=== PATIENT | female | born 1950 | race Caucasian/White ===

== ENCOUNTER 2019-02-08 13:51 | Emergency (ER) | payer MEDICARE, OTHER, SELFPAY ==
--- NOTE | 2019-02-08 14:08 | DI.RAD.S_ITS ---
PROCEDURE: XR HIP W PEL IF DONE LT 2V INDICATIONS: pain no inury TECHNIQUE: AP pelvis with lateral view(s) of the left hip. COMPARISON: None. FINDINGS: Bones: No fractures or dislocations. Pelvic ring appears intact. No suspicious bony lesions. Soft tissues: The visualized bowel gas pattern is normal. No suspicious soft tissue calcifications. Moderately severe degenerative osteoarthritis of the left hip without trauma. IMPRESSION: No trauma to the left hip is found that there is moderately severe left hip joint osteoarthritis. If hidden fracture is clinically suspected followup delayed plain films or MR scanning could be obtained. Dictated by: Hernan Yeh M.D. on 02/08/2019 at 14:54 Approved by: Hernan Yeh M.D. on 02/08/2019 at 14:56
--- NOTE | 2019-02-08 14:12 | ED_ITS ---
HPI - Extremity Injury (Lower) General Chief Complaint: Extremity Problem,Nontraumatic Stated Complaint: something wrong with left hip Time Seen by Provider: 02/08/19 13:55 Source: patient Mode of arrival: Ambulatory Limitations: no limitations History of Present Illness HPI Narrative: Patient is a 69-year-old female who presents with left hip pain ongoing for a month or more but definitely worse over last 3 days. She has actually seen evaluated by her PCP who diagnosed her with a tendinitis and put her on protocol of ibuprofen and ice. She says that ibuprofen really has not helped her last dose was this morning. She is able to weightbear bed is quite painful. She has pain in her buttock and some tingling in her thigh. No fevers or chills no fall or injury. Related Data Previous Rx's Medication Instructions Recorded hydrocodone-acetaminophen [[place]] 1 tab PO Q6H PRN #10 tab 02/08/19 meloxicam 7.5 mg PO DAILY #20 tab 02/08/19 Allergies Allergy/AdvReac Type Severity Reaction Status Date / Time No Known Drug Allergies Allergy Verified 02/08/19 14:22 Review of Systems Review of Systems Narrative: GENERAL: Denies chills,fever HEENT: Denies throat pain RESPIRATORY: Denies dyspnea, cough, wheezing CARDIOVASCULAR: Denies chest pain, palpitations GASTROINTESTINAL: Denies nausea, vomiting MUSCULOSKELETAL: See HPI SKIN: No rash, no laceration, no pruritus NEUROLOGIC: Denies weakness, dizziness, headache, numbness 8 point review of systems is negative except for those stated above and HPI Patient History Medical History Bipolar 1 disorder (Acute) Hypothyroid (Acute) Social History Smoking Status: Never smoker Exam Initial Vital Signs Initial Vital Signs: Vital Signs Temperature 97.7 F 02/08/19 14:14 Pulse Rate 78 02/08/19 14:14 Respiratory Rate 16 02/08/19 14:14 Blood Pressure 158/69 H 02/08/19 14:14 Pulse Oximetry 98 02/08/19 14:14 GENERAL: Well-appearing, well-nourished and in no acute distress. CARDIOVASCULAR: peripheral pulses in tact, cap refill <2 sec RESPIRATORY: No respiratory distress, speaks in full sentences without difficulty EXTREMITIES: Normal range of motion, no clubbing or edema. Neurovascularly intact Left hip able weightbear in the ED but it does appear painful. No erythema no contusion. Tender in the left buttock. His distal pedal pulse intact. Pain with internal and external rotation. BACK: No vertebral tenderness no step-offs NEUROLOGICAL: Cranial nerves II through XII grossly intact. Normal gait and speech. SKIN: Warm, dry, no petechiae, no rashes or lesions. Course Orders Ordered: ED Orders 02/08/19 14:08 XR hip w pel if done LT 2V Stat Discontinued Medications Hydrocodone Bitart/Acetaminophen ([place] 5/325) 1 tab PO NOW ONE Stop: 02/08/19 14:58 Last Admin: 02/08/19 15:01 Dose: 1 tab Documented by: EUGENIO Ketorolac Tromethamine (Toradol) 30 mg IM NOW ONE Stop: 02/08/19 14:09 Last Admin: 02/08/19 14:20 Dose: 30 mg Documented by: EUGENIO Vital Signs Vital signs: Vital Signs - 8 hr 02/08/19 14:14 02/08/19 15:10 Temperature 97.7 F Pulse Rate 78 91 H Respiratory Rate 16 16 Blood Pressure 158/69 H Blood Pressure [Left Arm] 154/62 H Pulse Oximetry 98 100 MDM - Extremity Injury (Lower) Imaging Data left hip: Radiologist's impression: PROCEDURE: XR HIP W PEL IF DONE LT 2V INDICATIONS: pain no inury TECHNIQUE: AP pelvis with lateral view(s) of the left hip. COMPARISON: None. FINDINGS: Bones: No fractures or dislocations. Pelvic ring appears intact. No suspicious bony lesions. Soft tissues: The visualized bowel gas pattern is normal. No suspicious soft tissue calcifications. Moderately severe degenerative osteoarthritis of the left hip without trauma. IMPRESSION: No trauma to the left hip is found that there is moderately severe left hip joint osteoarthritis. If hidden fracture is clinically suspected followup delayed plain films or MR scanning could be obtained. Dictated by: Hernan Yeh M.D. on 02/08/2019 at 14:54 MDM Narrative Medical decision making narrative: Patient states her pain got worse after Toradol. She initially was hesitant to have any narcotic medication but wanted some after the at. She is given 1 [place] tablet here. She has no fall or injury at this time I do not believe CT to be warranted. X-ray is negative for fracture. Family all at bedside. Stating that she cannot walk they actually have already gotten her wheelchair which they use to get her on the [place] today. On they are wanting an MRI however at this time not indicated patient has actually had pain ongoing for the last 6 weeks. The pain in her buttocks with some numbness in her anterior thigh. It sounds more like neuropathy rather than tendinitis. She was given [place] which seems to have helped. Patient is ambulatory with walker to the restroom and very little assistance from staff. At this time she likely does need physical therapy an outpatient MRI however none of this is emergent. Her pain is better controlled after [place]. I will also give her prescription for meloxicam. Discharge Plan Departure Patient Disposition: Home Clinical Impression: Acute pain of left hip Instructions: DI for Tendinitis, DI for Osteoarthritis Activity Restrictions/Additional Instructions: *You have been diagnosed with left hip pain *What to do: Increase activity as tolerated you may find that you need a cane while this is healing. This can take a few weeks to start getting better. *Continue to take medications as directed Meloxicam 7.5 mg once a day-do not combine with other NSAIDs such is ibuprofen, Aleve, Advil [place] 1-2 tablets every 6 hours if needed for severe pain *Follow up with your primary care provider in 2-3 days *Return to ER if you should have increasing weakness, numbness, tingling or any new, worsening or concerning symptoms CONTROLLED SUBSTANCE DISCHARGE (Narcotoic/benzodiazepine/Flexeril/Phenergan) 1. You have been prescribed narcotic medications, it does have acetaminophen/Tylenol/paracetamol in it so do not take extra Tylenol or Tylenol containing products 2. Please understand that we cannot provide further refills of narcotics, benzodiazepines or controlled substances through the ED and her pain management will need to be through your provider. 3. While on these medications you cannot drive or operate heavy machinery. 4. You cannot sign legal documents or perform any duties such as this. 5. As long as you're taking opiate pain medications he should also be taking a stool softener such as Colace, Dulcolax, MiraLAX or prune juice, to help avoid constipation. Prescriptions: New hydrocodone-acetaminophen [[place]] 5-325 mg tablet 1 tab PO Q6H PRN (Reason: pain) Qty: 10 RF: 0 meloxicam 7.5 mg tablet 7.5 mg PO DAILY Qty: 20 RF: 0
[2019-02-08 14:14] VITALS: BP 158/69; PULSE 78; RESP 16; TEMP 36.5; O2SAT 98
[2019-02-08] MEDS: KETOROLAC 60 MG/2 ML VIAL 30 MG IM (14:20)
--- NOTE | 2019-02-08 14:22 | PC.NURSE ---
pt placed in gown and brown non skid socks.
[2019-02-08] MEDS: HYDROCODONE/ACET 5/325 TABLET 1 TAB PO (15:01)
[2019-02-08 15:10] VITALS: BP 154/62; PULSE 91; RESP 16; O2SAT 100
[2019-02-08 16:26] VITALS: BP 137/76; PULSE 59; RESP 16; O2SAT 98
== END 2019-02-08 16:27 | disposition home or self-care (01) ==
PROVIDERS: Emergency Provider Emergency Medicine
DX: M25.552 Pain in left hip (principal)
CPT/HCPCS: 73502; 96372; 99283; J1885

== ENCOUNTER → 2019-03-01 19:30 | Outpatient (CLI) | payer MEDICARE, OTHER, SELFPAY ==
--- NOTE | 2019-03-01 | DI.MRI.S_ITS ---
PROCEDURE: MR HIP LT WO CON INDICATIONS: HIP PAIN TECHNIQUE: Noncontrast coronal T1 spin echo and STIR through the bony pelvis. Coronal and axial T2 fast spin echo with fat saturation, sagittal T1 spin echo, and oblique axial T2 fast spin echo with fat saturation through the hip. COMPARISON: None. FINDINGS: Image quality: Excellent. Bones and joints: Patient is status post prior right total hip arthroplasty. Moderate to severe osteoarthritic changes in left hip joint are seen with near complete loss of joint space, extensive subchondral sclerosis and cyst formation in left acetabulum and subchondral edema in the adjacent left femoral head. Marginal osteophyte formation is also seen. There is mild edema along lateral portion of left femoral head with no discrete fracture line seen likely represent stress related changes. No intraosseous lesions or fractures. No avascular necrosis of the femoral heads. The visualized lower lumbar spine appears normally aligned. Tendons and ligaments: Low-grade tendinosis and partial-thickness tear involving distal left gluteus medius and minimus tendon is seen, without associated muscle atrophy. There is also suggestion of strain/low-grade intrasubstance partial-thickness tear involving the adductor florence muscle and obturator externus muscle. The nearby proximal iliotibial band also appears intact. The iliopsoas tendon appears intact, without adjacent bursal fluid collections or evidence for impingement syndrome. The origin of the hamstring tendon is intact at the ischial tuberosity, as well as the associated sacrotuberous ligament. The straight and reflected heads of the rectus femoris muscle origin appear intact, as well as the conjoint tendon. The ligamentum teres appears intact where visualized. Moderate left hip joint effusion is noted. No gross intra-articular loose body. Labrum and cartilage: There is diffuse thinning of articular cartilage in femoral head and suggestion of extensive left hip labral tear. The alpha angle of the femur is within normal limits at less than 55 degrees. Soft tissues: Visualized muscles demonstrate normal bulk and internal signal. Quadratus femoris muscle demonstrates no internal edema to suggest ischiofemoral impingement. The proximal sciatic neurovascular bundle appears normal adjacent to the hamstring tendons. No free pelvic fluid. Bladder wall thickness is normal. Genitourinary structures and bowel loops appear normal where visualized. IMPRESSION: 1. Moderate to severe left hip joint osteoarthritis. Suggestion of stress reaction along weightbearing portion of lateral femoral head and femoral neck. No gross acute fracture or dislocation. No evidence of avascular necrosis of femoral head. 2. Suggestion of extensive left hip labral tear. Moderate amount of left hip joint effusion, no gross loose body. 3. Tendinosis involving distal left gluteus medius and minimus. Low-grade muscle strain involving left adductor florence and obturator externus muscles. Dictated by: Mike Molina M.D. on 03/04/2019 at 9:48 Approved by: Mike Molina M.D. on 03/04/2019 at 10:14
--- NOTE | 2019-03-01 19:35 | DI.MRI.S_ITS ---
PROCEDURE: MR LUMBAR SPINE WO CON INDICATIONS: LEFT LEG PAIN TECHNIQUE: Noncontrast sagittal T1 spin echo and T2 fast echo, sagittal STIR, axial T1 and T2 fast spin echo through the lumbar spine. In cases with scoliosis, additional coronal T2 fast spin echo may be performed. COMPARISON: None. FINDINGS: Image quality: Excellent. Alignment and Curvature: Enhances to plain films for comparison, it is assumed that there are are 5 nonrib-bearing lumbar vertebral bodies, and axial imaging was obtained from T12-L1 through the upper sacrum, and that mild anterolisthesis occurs at L5-S1, measuring 6 mm. There is a rudimentary S1-S2 disc. The other vertebral bodies are normally aligned. Bone Marrow: Marrow is of normal overall signal. No acute vertebral body compression fractures. No L5 pars defects are identified. Spinal Cord: Conus medullaris terminates at the L1-L2 level. Visualized cord demonstrates normal signal and size. Paraspinous Soft Tissues: No paravertebral masses. T12-L1: No canal stenosis or foraminal stenosis. L1-L2: Mild diffuse disc bulge with minimal superimposed posterior disc protrusion. No canal stenosis or foraminal stenosis. Facet joints are unremarkable. L2-L3: Normal appearance. L3-L4: Moderate broad-based posterior disc protrusion, facet and ligament hypertrophy, moderate canal stenosis. No significant foraminal stenosis. L4-L5: Minimal posterior disc bulge. Facet and ligament hypertrophy. No canal stenosis. Right foraminal annulus tear plus disc protrusion abutting the right L4 nerve root in the foramen, with moderate right foraminal narrowing. L5-S1: 6 mm anterolisthesis of L5 on S1. Facet and ligament hypertrophy. No canal stenosis. Mild right foraminal narrowing. Marked left foraminal narrowing with obliteration of the left L5 nerve root. IMPRESSION: 1. Please note the numbering system utilized above. 2. At L5-S1, there is grade 1 anterolisthesis of L5 on S1, with marked left foraminal narrowing and obliteration of the left L5 root. 3. Moderate canal stenosis at L3-L4. Dictated by: Ramana Cole M.D. on 03/04/2019 at 9:06 Approved by: Ramana Cole M.D. on 03/04/2019 at 9:14
== END ==
PROVIDERS: Visit Provider Family Medicine
DX: M79.605 Pain in left leg (principal); M48.061 Spinal stenosis, lumbar region without neurogenic claudication; M43.17 Spondylolisthesis, lumbosacral region; M16.12 Unilateral primary osteoarthritis, left hip; M25.552 Pain in left hip; S76.012A Strain of muscle, fascia and tendon of left hip, initial encounter; M25.452 Effusion, left hip; Z96.642 Presence of left artificial hip joint
CPT/HCPCS: 72148; 73721

== ENCOUNTER → 2020-11-24 08:37 | Outpatient (CLI) | payer MEDICARE, OTHER, SELFPAY ==
[2020-11-24 09:52] LABS: BUN Creatinine Ratio 34.6 (6-22); Blood Urea Nitrogen 18 mg/dL (7-17); Calcium 8.6 mg/dL (8.4-10.2); Carbon Dioxide 24 mmol/L (22-32); Chloride 99 mmol/L (98-107); Cholesterol 174 mg/dL (140-199); Estimated Glomerular Filt Rate > 60.0 mL/min (>60); Glucose 100 mg/dL (80-110); HDL Cholesterol 64 mg/dL (40-60); HEMOLYSIS < 15 (0-50); LDL Cholesterol Calculated 97 mg/dL (<100); Potassium 4.1 mmol/L (3.4-5.1); Sodium 130 mmol/L (137-145); Triglycerides 64 mg/dL (35-150)
[2020-11-24 09:55] LABS: High Sensitivity CRP - Cardiac < 0.3 mg/L (1.0-3.0)
[2020-11-24 10:26] LABS: Ferritin 15 ng/mL (11-264)
[2020-11-24 10:41] LABS: Vitamin B12 320 pg/mL (239-931)
[2020-11-24 10:46] LABS: HEMOLYSIS < 15 (0-50); Iron 81 ug/dL (37-170)
[2020-11-24 10:56] LABS: Percent Iron Saturation 24 % (15-50); Total Iron Binding Capacity 331 ug/dL (265-497); Transferrin 278 mg/dL (206-381)
[2020-11-24 10:59] LABS: Vitamin D 25 Hydroxy (D3) 43.5 ng/mL (30.0-100.0)
[2020-11-24 11:06] LABS: Free T4, Direct Thyroxine 1.24 ng/dL (0.78-2.19)
[2020-11-24 11:20] LABS: Thyroid Stimulating Hormone 1.55 uIU/mL (0.47-4.68)
[2020-11-25 04:36] LABS: Homocysteine 14.4 umol/L (0.0-19.2)
[2020-11-26 16:17] LABS: Lamotrigine Lamictal 8.8 ug/mL (2.0-20.0)
[2020-11-27 00:32] LABS: C-Telopeptide, Serum 100 pg/mL (.)
== END ==
PROVIDERS: Referring Provider Internal Medicine; Visit Provider Internal Medicine
DX: M81.0 Age-related osteoporosis without current pathological fracture; I10 Essential (primary) hypertension; E22.2 Syndrome of inappropriate secretion of antidiuretic hormone; E53.8 Deficiency of other specified B group vitamins; F31.12 Bipolar disorder, current episode manic without psychotic features, moderate; E03.9 Hypothyroidism, unspecified; D50.8 Other iron deficiency anemias; Z82.49 Family history of ischemic heart disease and other diseases of the circulatory system; Z00.00 Encounter for general adult medical examination without abnormal findings; E55.9 Vitamin D deficiency, unspecified
CPT/HCPCS: 36415; 80048; 80061; 80175; 82306; 82523; 82607; 82728; 83090; 83540; 83550; 84439; 84443; 86140

== ENCOUNTER → 2024-05-09 12:36 | Outpatient (ROUT) | payer MEDICARE, OTHER, SELFPAY | PROVIDERS: Visit Provider Dermatology | DX: Z48.817 Encounter for surgical aftercare following surgery on the skin and subcutaneous tissue (principal) | CPT/HCPCS: 87070; 87075; 87077; 87186; 87205 ==